=== PATIENT | female | born 1990 | race Caucasian/White ===

== ENCOUNTER → 2016-05-25 | Outpatient (REF) | payer BC ==
[~2016-05-25] MED LIST: FOLI0.4T2 PO; ONDA4TAB8 PO; PREN-51 PO
== END ==
LOC: LAB 15:05
PROVIDERS: ATTEND Obstetrics & Gynecology
DX: Z33.1 Pregnant state, incidental (principal)
CPT/HCPCS: 87653

== ENCOUNTER 2016-06-21 16:22 | Outpatient (CLI) | payer BC ==
[~2016-06-21] VITALS: Ht 165.1 cm; Wt 141.0 kg
[2016-06-21 16:57] VITALS: BP 132/88
[2016-06-21 17:30] VITALS: BP 132/88
[2016-06-21 17:45] VITALS: BP 147/80
== END 2016-06-21 18:00 | disposition home or self-care (01) ==
LOC: OB 16:22 → EUOP 16:22
PROVIDERS: ATTEND Obstetrics & Gynecology
DX: O42.92 Full-term premature rupture of membranes, unspecified as to length of time between rupture and onset of labor (principal); Z3A.39 39 weeks gestation of pregnancy
CPT/HCPCS: 84112; 99202

== ENCOUNTER 2016-06-22 14:50 | Inpatient (IN) | payer BC ==
[~2016-06-22] VITALS: Ht 165.1 cm; Wt 143.6 kg
[2016-06-22] VITALS (21 sets, daily range): BP systolic 120–167; BP diastolic 66–95
[2016-06-22] MEDS ORDERED: OXYTOCIN INJ 20 UNIT in NS 1000ml 1,000 ML IV PRN (15:39)
[2016-06-22] MEDS ORDERED: CALCIUM CARBONATE CHEWABLE 300 MG (TUMS) TABLET PO PRN (15:40)
--- NOTE | 2016-06-22 16:07 | History and Physical (E) ---
History & Physical (OB) Subjective: CC:Leaking fluid HPI:25 y/o at 40+0 WGA admitted for PROM at term. She reports rupture of membranes this afternoon around 1400, clear fluid. She has normal movement, no VB, no BOYLE, SOA, RUQ pain or visual changes. She does report irregular contractions, mild. GBS-. Blood pressures mildly elevated today, +2 urine dipstick, no severe features of preeclampsia. PNC:Transfer from Dr. Caballero, seen since first trimester, U/S confirming ALEKSANDRA. No complications this . OB Hx:none PMHx:none PSHx:none Allergies: Coded Allergies: No Known Drug Allergies (Unverified , 11/24/15) Home Medications: Active Scripts Ondansetron (Zofran ODT)4 Mg Tab.rapdis4 Mg PO QID PRN NAUSEA/VOMITING #9 TAB Ref 0 Prov:SALONI SPIVEY MD 11/24/15 Reported Medications Folic Acid 0.4 Mg Tablet0.4 Mg PO DAILY 11/24/15 Vit #76/Iron,Carb/Fa (Prenatabs RX Tablet)1 Each Tablet1 Each PO DAILY 11/24/15 Objective: Vital Signs Date Time Temp Pulse Resp B/P Pulse Ox O2 Delivery O2 Flow Rate FiO2 06/22/16 15:30 98.5 105 20 151/94 Laboratory Results Past 24 Hrs 06/22/16 15:14: Membranes Rupture (PAMG-1) Positive General: Alert and oriented, NAD Chest: CTA Abdomen: Gravid Cardiovasular: RRR, No murmur Extremities: No edema FHT's:145, reactive, reassuring, no decels. Cx:2.5/80/-3 VTX. SROM clear. [place]:irregular mild, q4-8 minutes. Screenings: Blood type: A Positive, Rubella Immune, RPR non-reactive, HBV Negative, HIV Negative , GBS Negative. Problems/Plans: (1) Full-term PROM with onset of labor within 24 hours of rupture Admit for PROM, monitor for elevated blood pressures, none treatable at this time. GBS-. Will allow for spontaneous labor, augment if no progress. Anticipate . Additional Copies to: End of Report . TOBIAS LYNCH MD June 22, 2016 16:07
[2016-06-22] MEDS ORDERED: LIDOCAINE PF 1% (XYLOCAINE) 2 ML VIAL INJ ONE (16:25)
[2016-06-22] MEDS: SODIUM CHLORIDE FLUSH 10 ML SYR IV PRN (16:25)
[2016-06-22 17:00] LABS: MEAN PLATELET VOLUME 12.1 FL (6.0-9.5); WHITE BLOOD COUNT 13.14 10^3uL (4.0-11.0)
[2016-06-22 17:12] LABS: ALBUMIN 3.3 g/dL (3.4-5.0); ANION GAP 12.7 MEQ/L (3-15); CALCULATED IONIZED CALCIUM 4.4 mg/dL (3.8-4.6); TOTAL PROTEIN 6.2 g/dL (6.4-8.5)
[2016-06-22 17:17] LABS: MEAN CORPUSCULAR HEMOGLOBIN 25.9 PG (26.0-34.0); MEAN CORPUSCULAR HGB CONC 31.6 g/dL (31.0-37.0)
[2016-06-22] MEDS ORDERED: OXYTOCIN INJ 20 UNIT in NS 1000ml 1,000 ML IV SCH (20:15)
[2016-06-22] MEDS ORDERED: OXYTOCIN 10 UNIT/ML (PITOCIN) 1 ML VIAL ONE (20:24)
[2016-06-22] MEDS ORDERED: ROPIVACAINE 1% 10 MG/ML (NAROPIN) 20 ML AMPUL ONE (21:45)
[2016-06-23] VITALS (13 sets, daily range): BP systolic 127–150; BP diastolic 59–88
[2016-06-23 00:02] LABS: BILIRUBIN,URINE Negative (Negative); CLARITY,URINE Clear; COLOR,URINE Yellow; GLUCOSE, URINE (UA) Negative (Negative); LEUKOCYTE ESTERASE ,URINE Negative (Negative); UROBILINOGEN,URINE 0.2 mg/dL (0.2-1.0)
[2016-06-23 00:13] LABS: URINE CENTRIFUGED VOLUME 12 mL
[2016-06-23 00:14] LABS: COARSE GRANULAR CASTS,URINE 1+ /LPF
[2016-06-23] MEDS ORDERED: ONDANSETRON 2 MG/ML (Z0FRAN) 2 ML VIAL IV PRN (03:20)
--- NOTE | 2016-06-23 07:15 | Progress Note (E) ---
Progress Note Complete dilation around 0400, started pushing around 4:45. Minimal descent the first hour, no detectable descent after an additional hour of pushing, +3 station and maternal exhaustion, epidural in place. OA position. We have consented for vacuum assisted delivery, and if unsuccessful, section risks reviewed as well. FHR now 145, minimal variabilitya with variable decelerations to 100 with contractions, normal shoulders and return to baseline in between for the last 30 minutes. TOBIAS LYNCH MD June 23, 2016 07:15
[2016-06-23] MEDS ORDERED: LANOLIN OINTMENT 28 GM TUBE TOP PRN (08:20)
--- NOTE | 2016-06-23 08:32 | Vaginal Delivery Summary (E) ---
Vaginal Delivery Summary At 15:00 on 06/22/16 this 25 year old G 1 now P1 presented to the Labor and Delivery Unit at 40 0/7 weeks gestation. The patient presented for care with Dr. Caballero in the first trimester and ultrasound at that time confirmed dates. This complications: Hypertension Preg-induced, None Maternal labs: Blood type: A Positive, Hgb , Rubella Immune, RPR non-reactive, HBV Negative, HIV Negative , GBS Negative. Tdap booster received on 2015. She presented for SROM. At presentation, she was 2 cm dilated. On 06/22/16 at 14 :15, SROM with Meconium Stained fluid returned. Epidural was placed by Pee Baker, with good pain relief. After pushing greater than 2 hours, no descent for 1 hour of adequate contractions and pushing, and maternal exhaustion. FHR developed variable decelerations to 100 bpm with contractions, normal return to baseline, decreased variability, category 2. Consent for vacuum assisted vaginal delivery completed. Kiwi placed at +3 station with SHOBHA position. 8 min application, 3 pulls, no pop-offs. RML episiotomy extended into 3rd degree laceration. Vaginal delivery of viable, vigorous baby girl without complication. Placenta delivered intact. Laceration repaired with 2-0 Vicryl in 4 quadrant repair of external sphincter, internal intact, rectum intact. Remaining laceration repaired in normal fashion with 3-0 Vicryl. EBL 300cc. TOBIAS LYNCH MD June 23, 2016 08:32
[2016-06-23] MEDS: IBUPROFEN 600 MG (MOTRIN) TAB PO PRN ×2 (10:31→19:56)
[2016-06-23] MEDS: SODIUM CHLORIDE FLUSH 10 ML SYR IV PRN (10:33)
--- NOTE | 2016-06-23 11:45 | NUR ---
Up to BR with assistance. Voids, pericare completed and ice pad to perineum. Returns to bed.
[2016-06-23] MEDS: HYDROcodone/APAP 5 MG/325 MG (NORCO) TAB PO PRN ×3 (12:05→21:49)
[2016-06-23] MEDS: DOCUSATE SODIUM 100 MG (COLACE) CAP PO SCH (21:49)
[2016-06-24] MEDS: IBUPROFEN 600 MG (MOTRIN) TAB PO PRN ×3 (01:38→17:48)
[2016-06-24 07:08] LABS: MEAN CORPUSCULAR HEMOGLOBIN 26.6 PG (26.0-34.0); MEAN CORPUSCULAR HGB CONC 32.2 g/dL (31.0-37.0); MEAN PLATELET VOLUME 12.1 FL (6.0-9.5); WHITE BLOOD COUNT 13.42 10^3uL (4.0-11.0)
[2016-06-24 08:00] VITALS: BP_SYST 126; BP_SYST 172; BP_DIAS 58; BP_DIAS 86
[2016-06-24] MEDS: DOCUSATE SODIUM 100 MG (COLACE) CAP PO SCH ×2 (09:10→21:18)
--- NOTE | 2016-06-24 10:34 | Progress Note (E) ---
Post- Progress Note Subjective: Doing well . Pain controlled, lochia normal. Objective: Vital Signs Date Time Temp Pulse Resp B/P Pulse Ox O2 Delivery O2 Flow Rate FiO2 06/24/16 08:00 97.3 88 18 126/58 97 Room air I & O 06/23/16 06/24/16 19:00 07:00 Intake Total 1001 ml Balance 1001 ml Laboratory Tests 06/24/16 06:55: Hematocrit 27.30, Hemoglobin 8.8, Mean Corpuscular Hemoglobin 26.6, Mean Corpuscular Hemoglobin Concent 32.2, Mean Corpuscular Volume 83, Mean Platelet Volume 12.1, Platelet Count 143, Red Blood Count 3.31, Red Cell Distribution Width 16.6, White Blood Count 13.42 Blood type: A Positive, Current Medications Calcium Carbonate 1-2 tablets PO q4 ho... Q4H PRN PO; Start 06/22/16 at 15:40 Ibuprofen 600 mg Q6H PRN PO Last administered on 06/24/16 09:21; Admin Dose 600 MG; Start 06/23/16 at 08:20 Docusate Sodium 100 mg BID PO Last administered on 06/24/16 09:10; Admin Dose 100 MG; Start 06/23/16 at 09:00 Lanolin 28 gm PRN PRN TOP; Start 06/23/16 at 08:20 Acetaminophen/ Hydrocodone Bitart Total acetaminophen not... Q4H PRN PO Last administered on 06/23/16 21:49; Admin Dose 2 TAB; Start 06/23/16 at 08:20 General: Alert and oriented, NAD Abdomen: Soft, non-distended, fundus firm Extremities: No edema Cardiovascular: RRR, No murmur Problems/Plans: (1) Full-term PROM with onset of labor within 24 hours of rupture Comment Doing well PPD#2. Hgb stable at 8.8, restart iron, monitor overnight. 3rd degree repair seems to be doing well. Anticipate discharge tomorrow. TOBIAS LYNCH MD June 24, 2016 10:34
[2016-06-24] MEDS: FERROUS SULFATE 325 MG (IRON) TABLET PO SCH ×2 (12:36→17:12)
[2016-06-24] MEDS: HYDROcodone/APAP 5 MG/325 MG (NORCO) TAB PO PRN (20:01)
[2016-06-24 20:10] VITALS: BP 147/75
[2016-06-25] MEDS: IBUPROFEN 600 MG (MOTRIN) TAB PO PRN (01:08)
[2016-06-25] MEDS: HYDROcodone/APAP 5 MG/325 MG (NORCO) TAB PO PRN ×2 (02:10→08:13)
[2016-06-25 08:00] VITALS: BP 138/79
[2016-06-25] MEDS: FERROUS SULFATE 325 MG (IRON) TABLET PO SCH (08:15)
[2016-06-25] MEDS: DOCUSATE SODIUM 100 MG (COLACE) CAP PO SCH (08:16)
--- NOTE | 2016-06-25 10:19 | Discharge Summary (E) ---
OB Discharge Summary Admit Date/Time June 22, 2016 at 15:36 Discharge Date/Time 06/25/16 Admitting Provider Amarjit Lynch MD Primary Care Provider Greg Sadler MD Attending Provider Amarjit Lynch MD Consulting Provider Procedures Vacuum assisted vaginal delivery on 06/25/16. Third degree perineal repair. History and Present Illness See History and Physical for complete details. Hospital Course and Treatment Admitted for PROM, augmented with oxytocin. Blood pressures elevated but none treatable, no other severe features of preeclampsia. PP course uncomplicated, discharged PPD#2 on iron for anemia. Discharge Physicial Exam General Alert and oriented, NAD Abdomen Soft, non-distended, fundus firm Extremities No edema Cardiovascular: RRR, No murmur Discharge Disposition Home Instructions Nothing PV 6 weeks. No lifting >20 lbs for 2 weeks. Call with severe pain, fevers, bleeding or trouble in the bathroom. Diet Regular Follow up Comment 6 weeks, Dr. Lynch Discharge Diagnosis Problems/Plans: (1) Full-term PROM with onset of labor within 24 hours of rupture Comment Doing well PPD#2. Discharge home. Copies to: End of Report . AMARJIT LYNCH MD June 25, 2016 10:19
[2016-06-25] MEDS ORDERED: FERR-74 PO (10:21)
[2016-06-25] MEDS ORDERED: HYDR-3702 PO (10:21)
[2016-06-25] MEDS ORDERED: DOCU-243 PO (10:21)
--- NOTE | 2016-06-25 13:10 | NUR ---
Discharge instruction and education reviewed with patient. Questions asked and answered. Patient discharged ambulatory status accompanied by FOB (carrying ) and Germaine WILKS. Patient discharged to home by POV
== END 2016-06-25 13:10 | disposition home or self-care (01) | DRG 775 ==
LOC: OBGOP 14:50 → OB 14:51 → OBGOP 15:36 → OB 15:36
PROVIDERS: ADMIT Obstetrics & Gynecology; ATTEND Obstetrics & Gynecology
PROC: 10D07Z6 Extraction of Products of Conception, Vacuum, Via Natural or Artificial Opening (ICD-10-PCS; principal; 2016-06-23)
PROC: 0DQR0ZZ Repair Anal Sphincter, Open Approach (ICD-10-PCS; 2016-06-23)
DX: O42.02 Full-term premature rupture of membranes, onset of labor within 24 hours of rupture (principal); O70.20 Third degree perineal laceration during delivery, unspecified; O13.4 Gestational [pregnancy-induced] hypertension without significant proteinuria, complicating childbirth; O76 Abnormality in fetal heart rate and rhythm complicating labor and delivery; O90.81 Anemia of the puerperium; D64.9 Anemia, unspecified; Z3A.40 40 weeks gestation of pregnancy; Z37.0 Single live birth
CPT/HCPCS: 36415; 80053; 81003; 81015; 83615; 84112; 84550; 85027; 85384; 85610; 85730; 86850; 86900; 86901